=== PATIENT | male | born 1945 | race African-American/Black ===

== ENCOUNTER 2022-08-14 00:56 | Inpatient (IN) | payer OTHER ==
[~2022-08-14] VITALS: Ht 185.4 cm; Wt 68.9 kg
[2022-08-14 02:35] LABS: BASOPHILS % 0.5 % (0.0-2.0); EOSINOPHILS % 0.2 % (0.0-5.0); HEMATOCRIT. 42.1 % (42.0-52.0); HEMOGLOBIN. 14.3 g/dL (14.0-18.0); LYMPHOCYTES % 24.4 % (20.0-50.0); MEAN CORPUSCULAR HEMOGLOBIN 32.5 pg (28.0-32.0); MEAN CORPUSCULAR VOLUME 95.6 fL (80.0-94.0); MEAN PLATELET VOLUME 9.9 fl (7.4-10.4); MONOCYTES % 10.6 % (2.0-8.0); NEUTROPHILS % 64.3 % (40.0-76.0); PLATELET 149 x1000/uL (130-400); RED CELL DISTRIBUTION WIDTH 14.4 % (11.6-14.6)
[2022-08-14 02:48] LABS: CHLORIDE 104 mEq/L (98-107)
[2022-08-14] MEDS ORDERED: MAGNESIUM/ALUMINUM HYDROXIDE/SIMETHICONE 30ML UDC PO PRN (11:45)
[2022-08-14] MEDS ORDERED: CLONIDINE 0.1MG TABLET PO PRN (11:45)
[2022-08-14] MEDS ORDERED: GUAIFENESIN 200MG/10ML SUGAR FREE UDC PO PRN (11:45)
[2022-08-14] MEDS ORDERED: DOCUSATE SODIUM 100MG CAPSULE PO PRN (11:45)
[2022-08-14] MEDS ORDERED: ACETAMINOPHEN 325MG TABLET PO PRN ×2 (11:45)
[2022-08-14 12:00] VITALS: BP 123/62
[2022-08-14] MEDS ORDERED: BUPIVACAINE HCL/PF 0.5% (5MG/ML) 10ML ONE (12:45)
[2022-08-14 12:47] LABS: T4 FREE 1.33 ng/dL (0.76-1.46)
[2022-08-14 13:08] LABS: VITAMIN B12 SERUM 1679 pg/mL (211-911)
[2022-08-14 13:17] LABS: FOLIC ACID (FOLATE) SERUM > 20.00 ng/mL (>5.38)
[2022-08-14 15:57] LABS: CREATINE KINASE 122 IU/L (39-308)
[2022-08-14 16:00] VITALS: BP 136/56
[2022-08-14] MEDS: ENOXAPARIN 40MG/0.4ML SYR SUBCUT SCH (17:08)
[2022-08-14] MEDS: DEXT 5%/0.45% NACL 1000ML 1,000 ML IV SCH ×2 (17:08→21:22)
[2022-08-14 20:12] LABS: HEPATITIS B SURFACE ANTIGEN NEGATIVE
[2022-08-14 20:42] VITALS: BP 119/58
[2022-08-14] MEDS: ATORVASTATIN CALCIUM 40MG TABLET PO SCH (21:21)
[2022-08-14] MEDS: FAMOTIDINE 20MG TABLET PO SCH (21:21)
[2022-08-14 23:42] LABS: CREATINE KINASE 143 IU/L (39-308)
[2022-08-15] VITALS (8 sets, daily range): BP systolic 93–158; BP diastolic 42–91
[2022-08-15 06:13] LABS: BASOPHILS % 0.4 % (0.0-2.0); EOSINOPHILS % 1.5 % (0.0-5.0); HEMATOCRIT. 34.1 % (42.0-52.0); HEMOGLOBIN. 11.7 g/dL (14.0-18.0); LYMPHOCYTES % 41.4 % (20.0-50.0); MEAN CORPUSCULAR VOLUME 95.9 fL (80.0-94.0); MEAN PLATELET VOLUME 9.8 fl (7.4-10.4); MONOCYTES % 12.9 % (2.0-8.0); NEUTROPHILS % 43.8 % (40.0-76.0); PLATELET 108 x1000/uL (130-400); RED BLOOD CELL COUNT 3.56 mill/uL (4.7-6.1); RED CELL DISTRIBUTION WIDTH 14.6 % (11.6-14.6)
[2022-08-15] MEDS: DEXT 5%/0.45% NACL 1000ML 1,000 ML IV SCH (06:42)
[2022-08-15 08:43] LABS: CHLORIDE 111 mEq/L (98-107)
[2022-08-15] MEDS: ENOXAPARIN 40MG/0.4ML SYR SUBCUT SCH (12:12)
[2022-08-15] MEDS: ATORVASTATIN CALCIUM 40MG TABLET PO SCH (20:54)
[2022-08-15] MEDS: FAMOTIDINE 20MG TABLET PO SCH (20:54)
[2022-08-16] VITALS: BP 139/66
[2022-08-16] MEDS: DEXT 5%/0.45% NACL 1000ML 1,000 ML IV SCH ×2 (00:07→13:43)
[2022-08-16 04:00] VITALS: BP 132/62
[2022-08-16 08:00] VITALS: BP_SYST 142; BP_SYST 173; BP_DIAS 65; BP_DIAS 94
[2022-08-16] MEDS ORDERED: FENTANYL CITRATE/PF 50MCG/ML 2ML VIAL ONE (11:45)
[2022-08-16] MEDS ORDERED: TETRACAINE/BENZOCAINE/BUTAMBEN 20 GM SPRAY MM ONE (11:45)
[2022-08-16] MEDS ORDERED: MIDAZOLAM HCL 2 MG/2 ML VIAL ONE (11:45)
[2022-08-16] MEDS ORDERED: DIPHENHYDRAMINE 50MG/ML VIAL ONE (11:46)
[2022-08-16] MEDS ORDERED: LIDOCAINE 2% 6ML GLYDO MM ONE (11:47)
[2022-08-16 12:00] VITALS: BP 117/66
[2022-08-16] MEDS: ENOXAPARIN 40MG/0.4ML SYR SUBCUT SCH (13:43)
[2022-08-16] MEDS ORDERED: DEXTROSE 50% WATER 50ML SYRINGE IV PRN (19:45)
[2022-08-16] MEDS: BLOOD SUGAR DIAGNOSTIC STRIP TEST SCH (21:00)
[2022-08-16] MEDS: FAMOTIDINE 20MG TABLET PO SCH (22:01)
[2022-08-16] MEDS: ATORVASTATIN CALCIUM 40MG TABLET PO SCH (22:01)
[2022-08-17 05:57] LABS: CHLORIDE 106 mEq/L (98-107)
[2022-08-17 06:05] LABS: BASOPHILS % 0.5 % (0.0-2.0); EOSINOPHILS % 1.9 % (0.0-5.0); HEMATOCRIT. 36.3 % (42.0-52.0); HEMOGLOBIN. 12.5 g/dL (14.0-18.0); LYMPHOCYTES % 41.1 % (20.0-50.0); MEAN CORPUSCULAR HEMOGLOBIN 32.7 pg (28.0-32.0); MEAN CORPUSCULAR VOLUME 95.2 fL (80.0-94.0); MEAN PLATELET VOLUME 10.1 fl (7.4-10.4); MONOCYTES % 11.8 % (2.0-8.0); NEUTROPHILS % 44.7 % (40.0-76.0); PLATELET 110 x1000/uL (130-400); RED BLOOD CELL COUNT 3.81 mill/uL (4.7-6.1)
[2022-08-17] MEDS: BLOOD SUGAR DIAGNOSTIC STRIP TEST SCH ×2 (07:40→12:40)
[2022-08-17 08:00] VITALS: BP 130/75
[2022-08-17] MEDS ORDERED: APIXABAN 5 MG TABLET PO SCH (09:00)
[2022-08-17 12:00] VITALS: BP_SYST 114; BP_SYST 134; BP_DIAS 67; BP_DIAS 76
[2022-08-17 14:39] VITALS: BP 130/75
== END 2022-08-17 18:20 | disposition home or self-care (01) | DRG 74 ==
LOC: ER 01:01 → 7WST 07:45
PROVIDERS: ADMIT Hospitalist; ATTEND Hospitalist
DX: G90.8 Other disorders of autonomic nervous system (principal); N17.9 Acute kidney failure, unspecified; E86.0 Dehydration; D72.819 Decreased white blood cell count, unspecified; D75.89 Other specified diseases of blood and blood-forming organs; E78.00 Pure hypercholesterolemia, unspecified; F32.9 Major depressive disorder, single episode, unspecified; F41.1 Generalized anxiety disorder; I25.10 Atherosclerotic heart disease of native coronary artery without angina pectoris; E80.6 Other disorders of bilirubin metabolism; I50.9 Heart failure, unspecified; E78.5 Hyperlipidemia, unspecified; I34.0 Nonrheumatic mitral (valve) insufficiency; Z86.16 Personal history of COVID-19; Z86.73 Personal history of transient ischemic attack (TIA), and cerebral infarction without residual deficits; W18.30XA Fall on same level, unspecified, initial encounter; Y93.89 Activity, other specified; Y99.8 Other external cause status; Y92.89 Other specified places as the place of occurrence of the external cause
CPT/HCPCS: 36415; 71045; 80048; 80053; 80061; 82270; 82542; 82550; 82607; 82746; 82962; 83036; 83880; 84439; 84443; 84484; 85025; 86022; 86592; 86803; 87340; 87426; 93005; 93306; 93312; 93880; 93970; 99285; C9803; J1200; J1650; J2250; J3010; J3490

== ENCOUNTER 2024-12-20 16:33 | Emergency (ER) | payer OTHER ==
[~2024-12-20] VITALS: Ht 188 cm; Wt 75.0 kg
[2024-12-20 16:44] VITALS: O2SAT 99
[2024-12-20 19:18] LABS: PLATELET 115 x1000/uL (130-400); RED BLOOD CELL COUNT 3.98 mill/uL (4.7-6.1); RED CELL DISTRIBUTION WIDTH 14.4 % (11.6-14.6)
[2024-12-20 19:29] LABS: CREATININE 1.1 mg/dL (0.6-1.3)
[2024-12-20 19:30] LABS: UREA NITROGEN BLOOD 19 mg/dL (9-23)
[2024-12-20 22:25] VITALS: BP 142/76; PULSE 63; RESP 19; TEMP 36.8; O2SAT 98
== END 2024-12-20 22:45 | disposition short-term general hospital (02) ==
LOC: ER 16:33 → EDBEDREQ 21:43 → EDBEDREQTM 21:43 → ER 22:45
DX: M79.89 Other specified soft tissue disorders (principal); D69.6 Thrombocytopenia, unspecified; D72.819 Decreased white blood cell count, unspecified; F03.90 Unspecified dementia, unspecified severity, without behavioral disturbance, psychotic disturbance, mood disturbance, and anxiety; Z55.6 Problems related to health literacy; Z91.141 Patient's other noncompliance with medication regimen due to financial hardship
CPT/HCPCS: 36415; 80048; 83880; 85027; 99285; A4606